=== PATIENT | male | born 1985 | race Caucasian/White ===

== ENCOUNTER 2018-05-06 12:05 | Emergency (ER) | payer OTHER ==
[~2018-05-06] VITALS: Ht 177.8 cm; Wt 84.1 kg
[2018-05-06] MEDS ORDERED: DICL50TA8 PO (12:43)
[2018-05-06] MEDS ORDERED: CYCL-1 PO (12:43)
[2018-05-06] MEDS ORDERED: ketorolac trometh inj. 60 MG/2 ML VIAL IM ONE (12:45)
[2018-05-06 13:04] VITALS: BP 117/74
== END 2018-05-06 13:12 | disposition home or self-care (01) ==
LOC: ER 12:06
DX: M54.5 Low back pain (principal); Z79.899 Other long term (current) drug therapy; X50.1XXA Overexertion from prolonged static or awkward postures, initial encounter; Y93.89 Activity, other specified; Y92.000 Kitchen of unspecified non-institutional (private) residence as the place of occurrence of the external cause; Y99.8 Other external cause status
CPT/HCPCS: 96372; 99283; J1885

== ENCOUNTER 2018-11-14 10:08 | Emergency (ER) | payer OTHER ==
[~2018-11-14] VITALS: Ht 180.3 cm; Wt 84.1 kg
[~2018-11-14 10:08] MED LIST: CYCL-1 PO; DICL50TA8 PO
[2018-11-14] MEDS ORDERED: guaiFENesin/codeine phos 10ml UD oral syrup PO ONE (12:10)
[2018-11-14] MEDS ORDERED: GUAI237L83 PO (12:27)
[2018-11-14] MEDS ORDERED: BENZ-16 PO (12:39)
[2018-11-14 12:46] VITALS: BP 131/70
== END 2018-11-14 12:47 | disposition home or self-care (01) ==
LOC: ER 10:09
DX: S01.81XA Laceration without foreign body of other part of head, initial encounter (principal); S01.01XA Laceration without foreign body of scalp, initial encounter; R05 Cough; R50.9 Fever, unspecified; F17.200 Nicotine dependence, unspecified, uncomplicated; W19.XXXA Unspecified fall, initial encounter; Y93.89 Activity, other specified; Y92.89 Other specified places as the place of occurrence of the external cause; Y99.9 Unspecified external cause status
CPT/HCPCS: 12001; 12011; 71046; 87502; 87503; 99284

== ENCOUNTER 2023-02-04 07:33 | Emergency (ER) | payer MEDICAID, OTHER ==
[~2023-02-04] VITALS: Ht 182.9 cm; Wt 81.8 kg
[~2023-02-04 07:33] MED LIST changes: +GUAI237L83 PO
[2023-02-04 09:43] LABS: BASOPHILS % (AUTO) 0.5 % (0-1); EOSINOPHILS # (AUTO) 0.2 X10'3 (0-0.9); EOSINOPHILS % (AUTO) 2.1 % (0-6); HEMATOCRIT 42.3 % (42.0-52.0); LYMPHOCYTES # (AUTO) 2.8 X10'3 (1.1-4.8); LYMPHOCYTES % (AUTO) 31.2 % (21-51); MEAN CORPUSCULAR HEMOGLOBIN 27.1 PG (27.0-31.0); MEAN CORPUSCULAR VOLUME 82.2 FL (78-98); MONOCYTES # (AUTO) 0.6 X10'3 (0-0.9); NEUTROPHILS # (AUTO) 5.3 X10'3 (1.8-7.7); NEUTROPHILS % (AUTO) 59.2 % (42-75); PLATELET COUNT 305 X10'3 (140-440); RED BLOOD COUNT 5.15 X10'6 (4.70-6.10); RED CELL DISTRIBUTION WIDTH 13.8 % (11.5-14.5)
[2023-02-04 09:59] LABS: APTT 29 SECONDS (22-32); D-DIMER 0.53 MG/L FEU (0-0.50)
[2023-02-04 10:03] LABS: ALANINE AMINOTRANSFERASE 38 U/L (12-78); ALBUMIN 3.1 G/DL (3.4-5.0); ALBUMIN/GLOBULIN RATIO 0.9 (1.1-1.5); ALKALINE PHOSPHATASE 85 IU/L (46-116); ANION GAP 7 (8-16); ASPARTATE AMINO TRANSFERASE 20 U/L (10-37); BILIRUBIN,TOTAL 0.3 MG/DL (0.1-1.0); BLOOD UREA NITROGEN 6 MG/DL (7-18); BUN/CREATININE RATIO 6.9 (5.4-32.0); C-REACTIVE PROTEIN 3.54 MG/DL (0.0-0.5); CALCIUM 8.4 MG/DL (8.5-10.1); CHLORIDE 106 MMOL/L (99-107); CREATININE 0.87 MG/DL (0.60-1.10); GLUCOSE 107 MG/DL (70-104); MAGNESIUM 2.1 MG/DL (1.5-2.4); POTASSIUM 3.9 MMOL/L (3.5-5.1); SODIUM 139 MMOL/L (135-145); TOTAL PROTEIN 6.5 G/DL (6.4-8.2); eGFR > 90 ML/MIN
[2023-02-04 10:18] LABS: CLARITY,URINE CLEAR (Clear); COLOR,URINE YELLOW (Yellow); GLUCOSE, URINE NEGATIVE (Neg); KETONES,URINE TRACE mg/dl (Neg); LEUKOCYTE ESTERASE ,URINE NEGATIVE (Neg); NITRITES, URINE NEGATIVE (Neg); OCCULT BLOOD,URINE NEGATIVE (Neg); PROTEIN,URINE NEGATIVE (Neg); UROBILINOGEN,URINE 0.2 E.U/dL (0.2-1.0)
[2023-02-04 10:20] LABS: UA COLLECTION TYPE NON-SPECIFIED
[2023-02-04 10:46] LABS: HIV ANTIBODY 1&2 RAPID PRELIM REACTIVE (Neg)
--- NOTE | 2023-02-04 12:44 | NUR ---
PT VISUAL QUITY DONE PT WAS ABLE TO READ AND VISUALIZIES EVERYTHING FROM HIS RGT EYE BUT UNABLE TO READ FROM HIS LFT EYE "STATED EVERTHING IS BLURRY I CAN'T READ ANYTHING."
[2023-02-04] MEDS ORDERED: PENICILLIN G BENZATHINE 2,400,000 UNIT/4 ML SYRINGE IM STA (12:46)
[2023-02-04] MEDS ORDERED: CefTRIAXone 1000mg IM Kit (w/lidocaine diluent) IM STA (12:46)
[2023-02-04] MEDS ORDERED: azithromycin 250mg tablet PO ONE (12:50)
[2023-02-04] MEDS ORDERED: NAPR-56 PO (13:10)
[2023-02-04 13:48] VITALS: BP 114/73
[2023-02-09 08:49] LABS: RPR, QUANT. 1:8 High
== END 2023-02-04 13:52 | disposition home or self-care (01) ==
LOC: ER 07:34
DX: B20 Human immunodeficiency virus [HIV] disease (principal); H10.9 Unspecified conjunctivitis; R21 Rash and other nonspecific skin eruption; R50.9 Fever, unspecified; M25.571 Pain in right ankle and joints of right foot; M25.572 Pain in left ankle and joints of left foot; H53.8 Other visual disturbances
CPT/HCPCS: 36415; 71045; 80053; 81003; 83605; 83735; 84145; 85025; 85379; 85610; 85651; 85730; 86140; 86592; 86703; 87040; 87491; 87535; 87591; 96372; 99284; J0561; J0696

== ENCOUNTER 2023-02-12 07:34 | Emergency (ER) | payer MEDICAID ==
[~2023-02-12] VITALS: Ht 177.8 cm; Wt 86.0 kg
[~2023-02-12 07:34] MED LIST changes: +NAPR-56 PO
[2023-02-12 07:39] VITALS: BP 121/82
[2023-02-12] MEDS ORDERED: PENICILLIN G BENZATHINE 2,400,000 UNIT/4 ML SYRINGE IM ONE (09:58)
== END 2023-02-12 10:12 | disposition home or self-care (01) ==
LOC: ER 07:35
DX: A53.9 Syphilis, unspecified (principal); Z98.890 Other specified postprocedural states
CPT/HCPCS: 96372; 99283; J0561